=== PATIENT | male | born 1970 | race Caucasian/White ===

== ENCOUNTER → 2017-08-29 | Day surgery (SDC) | payer BC ==
[2017-08-18 17:43] VITALS: BMI 33.3
[~2017-08-29] MED LIST: ACETAMINOPHEN 325 MG TABLET (FP) ONE; ACETAMINOPHEN 325 MG TABLET (FP) PO ONE; BUPIVACAINE HCL/PF 0.25% (2.5MG/ML) 10 ML VIAL IJ ONE; BUPIVACAINE HCL/PF 0.5% (5MG/ML) 10 ML VIAL ONE; BUPIVACAINE HCL/PF 2.5 MG/ML - 30 ML VIAL IJ ONE; GELATIN SPONGE,ABSORBABLE 1 GM PACKET TP ONE; LACTATED RINGERS SOLUTION 1,000 ML IV SCH; LIDOCAINE 1%/EPI 1:100000 (20 ML MULTI DOSE VIAL) ONE; LIDOCAINE 1%/EPI 1:100000 (50 ML MULTI DOSE VIAL) INF ONE; LIDOCAINE HCL 1%, 10 MG/ML (50 mL VIAL) IJ ONE; MIDAZOLAM HCL 2 MG/2 ML SINGLE DOSE VIAL ONE; ONDANSETRON 4 MG/2 ML VIAL IVPUSH PRN; PROMETHAZINE HCL 25 MG/1 ML VIAL IVPUSH PRN; THROMBIN (BOVINE) 5,000 UNIT VIAL TP ONE; methylPREDNISolone ACET (DEPO) 40 MG/1 ML VIAL IM ONE; methylPREDNISolone ACET (DEPO) 40 MG/1 ML VIAL ONE; oxyCODONE HCL 10 MG SUSTAINED ACTING TABLET PO ONE; oxyCODONE HCL 5 MG TABLET PO PRN
--- NOTE | 2017-08-29 14:20 | HP ---
History & Physical Update - History History: No Change - Physical Physical: No Change - Assessment Assessment: No Change - Plan Plan: No Change
--- NOTE | 2017-08-29 16:36 | OP ---
Operative Note - Note: Operative Date: 08/29/17 Operation: laminectomy of L5-S1 Surgeon: Jesús Faria Supervisor Extrusion: Unique Carbone Anesthesiologist/ARCH SUPPORT MAKER: Jaquan Angel Anesthesia: Spinal Estimated Blood Loss (mls): 20 Fluid Volume Replaced (mls): 1,000 Operative Report Dictated: Yes
--- NOTE | 2017-08-29 16:36 | SURG ---
Surgery Large Animal Veterinarian Note Large Animal Veterinarian: Unique Carbone PA-C Date of Service: 08/29/17 Diagnosis: spinal stenosis Procedure: laminectomy of L5-S1 I was present for the entirety of the operative procedure. For further detail, please refer to operative report. Visit type - Case Type Case Type: Scheduled Admission - Emergency Emergency Visit: No - New patient This patient is new to me today: Yes Date on this admission: 08/29/17
[2017-08-29 17:35] VITALS: TEMP 97.6
[2017-08-29 20:01] VITALS: BP 134/67; PULSE 67
--- NOTE | 2017-08-30 08:15 | OP ---
DATE OF OPERATION: 08/29/2017 PREOPERATIVE DIAGNOSIS: Spinal stenosis, L5-S1. POSTOPERATIVE DIAGNOSIS: Spinal stenosis, L5-S1. PROCEDURE PERFORMED: Laminectomy, L5-S1. SURGEON: Jesús Faria MD RETOUCHING OPERATOR: KATHY Berumen ESTIMATED BLOOD LOSS: 50 mL INTRAVENOUS FLUIDS: Per Anesthesia. COMPLICATIONS: None. ANESTHESIA: Spinal. DISPOSITION: Patient brought to the PACU in stable condition. INDICATIONS FOR SURGERY: The patient is a 47-year-old gentleman who has been suffering from pain from his back down his leg. X-rays and MRI were completed which noted that he had spinal stenosis at L5-S1. He had gone through an exhaustive course of treatment for this, which included medications, physical therapy as well as injections. Unfortunately, his pain continued to persist despite all this. At this point, risks, benefits, and alternatives were discussed, and the patient consented to surgery. DESCRIPTION OF PROCEDURE: Patient was brought to the operating room by the Anesthesia staff. After appropriate patient identification was performed, spinal anesthesia was given. Appropriate anesthetic lines were placed. The patient was able to position himself prone on the OR table to avoid all areas of bony prominences. Two needles were placed into his back to raghu off the L5-S1 segment. X-ray was taken to confirm this as correct. [place] were removed, and 10 mL of lidocaine with epinephrine were injected in his back at this time. His back was prepped and draped in a sterile manner. At this point, a timeout was completed. An incision was made from the top of L5 down to the bottom of S1. Dissection was carried down to the fascia, and the fascia was split open at this time. Appropriate retractors were then placed in. A spinal needle was placed onto the L5 lamina to raghu off the L5-S1 level. An x-ray was taken to confirm this as correct. The needle was removed, and the microscope was brought in. The interspinous ligament at L5-S1 was removed. Portions of the L5-S1 spinous process were removed. Portions of the L5-S1 lamina were removed. The flavum was identified, was removed. A complete decompression was performed such that by the end of the procedure the S1 nerve root appeared to be well decompressed. All bleeding was well controlled at this time. Steroid was placed over the nerve root. FloSeal was placed over that. The fascia was closed with a No. 1 Vicryl suture. Subcutaneous tissues were closed with 2-0 Vicryl suture. Skin was closed with 3-0 Monocryl suture. Dermabond was applied. Steri-Strips were applied. A sterile dressing was applied. Patient was placed supine on the OR bed and brought to the PACU in stable condition. Crystal [id number]
== END | disposition home or self-care (01) ==
LOC: FASU 11:34
PROVIDERS: ATTEND Orthopaedic Surgery Orthopaedic Surgery of the Spine
PROC: 01NB0ZZ Release Lumbar Nerve, Open Approach (ICD-10-PCS; principal; 2017-08-29 14:15)
DX: M48.07 Spinal stenosis, lumbosacral region (principal)
CPT/HCPCS: 72100-TC; 76000-TC; 94760